=== PATIENT | female | born 1935 | race Caucasian/White ===

== ENCOUNTER 2022-06-08 14:35 | Emergency (ER) | payer MEDICARE, BC ==
[~2022-06-08] VITALS: Ht 167.6 cm; Wt 72.6 kg
--- NOTE | 2022-06-08 14:35 | NUR ---
RECEIVED PT 87 YRS FEMALE CAME FROM [facility] BY SHAMA Gutierrez and confused C/O N/V FOR 3DAYS HX FALL DOWN 2 week ago respiration spont and easy
--- NOTE | 2022-06-08 14:40 | NUR ---
Seen by aDR. LAW
--- NOTE | 2022-06-08 14:47 | NUR ---
PT CAME FROM [facility] NUMBER [phone]
--- NOTE | 2022-06-08 14:50 | NUR ---
INcerted ango catheter G 20 ON RT AC BLOOD DROW AND SENT TO LAB
--- NOTE | 2022-06-08 15:00 | NUR ---
TO CT SCAN OF HEAD
[2022-06-08 15:16] LABS: BASOPHILS # (AUTO) 0.1 K/uL (0.0-0.2); BASOPHILS % (AUTO) 0.4 % (0.0-2.0); EOSINOPHILS % (AUTO) 0.2 % (0.0-6.0); HEMATOCRIT 40 % (33-45); HEMOGLOBIN 12.9 g/dL (11.5-14.8); LYMPHOCYTES # (AUTO) 0.5 K/uL (0.8-4.8); LYMPHOCYTES % (AUTO) 2.7 % (20.0-44.0); MEAN CORPUSCULAR HGB CONC 32 g/dl (31.0-36.0); MEAN CORPUSCULAR VOLUME 92 fL (82-100); MONOCYTES # (AUTO) 1.1 K/uL (0.1-1.30); MONOCYTES % (AUTO) 6.1 % (2.0-12.0); NEUTROPHILS # (AUTO) 16.4 K/uL (1.8-8.9); NEUTROPHILS % (AUTO) 90.6 % (43.0-81.0); PLATELET COUNT (AUTO) 294 K/uL (150-450); RED BLOOD CELL COUNT(AUTO) 4.32 MIL/uL (4.0-5.2)
--- NOTE | 2022-06-08 15:28 | NUR ---
ACCUCHECK DONE 108MG/LD AWARE
[2022-06-08 15:29] LABS: ALANINE AMINOTRANSFERASE 24 U/L (12-78); ALBUMIN 3.3 g/dL (3.4-5.0); ALCOHOL, BLOOD < 3 mg/dL (0-0); ALKALINE PHOSPHATASE 53 U/L (46-116); ASPARTATE AMINOTRANSFERASE 17 U/L (15-37); BILIRUBIN,DIRECT 0.2 mg/dL (0.0-0.2); BILIRUBIN,TOTAL 0.7 mg/dL (0.2-1.0); CALCIUM, SERUM 9.2 mg/dL (8.5-10.1); CARBON DIOXIDE 24 mmol/L (21-32); CHLORIDE 101 mmol/L (98-107); CREATININE 0.8 mg/dL (0.6-1.3); GLUCOSE 125 mg/dL (74-106); POTASSIUM 4.4 mmol/L (3.5-5.1); SODIUM SERUM 136 mmol/L (136-145); TOTAL PROTEIN, SERUM 7.6 g/dL (6.4-8.2); UREA NITROGEN, BLOOD 27 mg/dL (7-18)
[2022-06-08 15:35] LABS: THYROID STIMULATING HORMONE 0.767 uIU/mL (0.358-3.74)
[2022-06-08 15:44] LABS: SERUM AMMONIA < 10 umol/L (11-32)
--- NOTE | 2022-06-08 16:00 | NUR ---
PT SWALLOW NO DIFFECULTY NO ASPIRATION
--- NOTE | 2022-06-08 16:46 | NUR ---
I&O CATHETER DONE 200ML YELLOW COLOR UA SENT TO LAB
[2022-06-08 17:13] LABS: BILIRUBIN,URINE NEGATIVE (NEGATIVE); COLOR,URINE YELLOW (YELLOW); LEUKOCYTE ESTERASE ,URINE NEGATIVE (NEGATIVE); NITRITE, URINE NEGATIVE (NEGATIVE); PROTEIN,URINE NEGATIVE (NEGATIVE); UGLUCOSE NEGATIVE (NEGATIVE)
[2022-06-08 18:10] LABS: RBC,URINE 0-2 /HPF (0-2); WBC,URINE 0-2 /HPF (0-3)
[2022-06-08 18:11] LABS: BACTERIA,URINE Few /HPF (None Seen); SQUAMOUS EPITHELIAL CELL,UR Moderate /HPF (None Seen)
--- NOTE | 2022-06-08 18:27 | NUR ---
CALLED [facility] AND SET UP BLS TRANSPORT ETA 1929
--- NOTE | 2022-06-08 19:07 | NUR ---
ANAST ASCENCIO [phone]
--- NOTE | 2022-06-08 19:10 | NUR ---
IV removed. Catheter intact and site benign. Pressure and 4x4 applied to site. No bleeding noted.
--- NOTE | 2022-06-08 19:15 | NUR ---
Patient discharged to home in stable condition. Written and verbal after care instructions given. Patient verbalizes understanding of instruction.
--- NOTE | 2022-06-08 19:25 | NUR ---
D/C HOME BY WC
[2022-06-08 19:35] VITALS: BP 147/68
== END 2022-06-08 19:37 | disposition home or self-care (01) ==
LOC: ER 14:43
DX: F03.90 Unspecified dementia, unspecified severity, without behavioral disturbance, psychotic disturbance, mood disturbance, and anxiety (principal)
CPT/HCPCS: 36415; 70450-TC; 71045-TC; 80048-TC; 80076-TC; 81001; 82140-TC; 82962-TC; 84443-TC; 84484-TC; 85025-TC; 85730-TC; G0480